=== PATIENT | male | born 1955 | race Caucasian/White ===

== ENCOUNTER 2024-12-19 05:52 | Day surgery (SDC) | payer MEDICARE, OTHER ==
[2024-12-14 13:46] VITALS: BMI 37.6
[2024-12-19] MEDS ORDERED: Lidocaine 1% w/Epinephrine 1:200K 30 ML VIAL ONE (06:53)
[2024-12-19] MEDS ORDERED: AFRIN NASAL MIST 15 ML BOT ONE ×2 (06:53→07:03)
[2024-12-19] MEDS ORDERED: Bacitracin 1 PK ONE (06:53)
[2024-12-19] MEDS ORDERED: PROPOFOL 40 ML ONE (06:56)
[2024-12-19] MEDS ORDERED: Rocuronium Bromide 10 MG/ML (10ML VIAL) ONE (06:57)
[2024-12-19] MEDS ORDERED: Lidocaine 1% PF 5 ML VIAL ONE (06:57)
[2024-12-19] MEDS ORDERED: Oxymetazoline HCl 0.05% (15 ML) ONE (07:39)
[2024-12-19 07:44] LABS: Hematocrit 40.7 % (38.8-50.0); Hemoglobin 13.9 g/dL (13.5-17.5)
[2024-12-19] MEDS ORDERED: Ondansetron PF 4 MG/2 ML Vial ONE (07:55)
[2024-12-19] MEDS ORDERED: SUGAMMADEX SODIUM 200 MG/2 ML VIAL ONE (07:55)
[2024-12-19 07:58] LABS: Anion Gap 12 mmol/L (10-20); BUN (Urea Nitrogen) 18 mg/dL (8.4-25.7); Calc. Creatinine Clearance 122 mL/min (70-130); Calcium 8.9 mg/dL (7.8-10.44); Carbon Dioxide 24 mmol/L (23-31); Chloride 108 mmol/L (98-107); Glucose 152 mg/dL (80-115); Potassium 3.9 mmol/L (3.5-5.1); Sodium 140 mmol/L (136-145)
== END 2024-12-19 08:32 | disposition home or self-care (01) ==
LOC: CSHSDC 05:52
PROVIDERS: ATTEND Otolaryngology Plastic Surgery within the Head & Neck
PROC: 09SM4ZZ Reposition Nasal Septum, Percutaneous Endoscopic Approach (ICD-10-PCS; principal; 2024-12-19)
PROC: 09TL8ZZ Resection of Nasal Turbinate, Via Natural or Artificial Opening Endoscopic (ICD-10-PCS; 2024-12-19)
DX: J34.2 Deviated nasal septum (principal); J34.3 Hypertrophy of nasal turbinates; J34.821 External nasal valve collapse; G47.33 Obstructive sleep apnea (adult) (pediatric); H91.90 Unspecified hearing loss, unspecified ear; I10 Essential (primary) hypertension; E78.00 Pure hypercholesterolemia, unspecified
CPT/HCPCS: 30520; 30140; 80048; 85014; 85018; 93005; J2405; J2704; J3010; 36415; 93010